=== PATIENT | male | born 1990 | race Caucasian/White ===

== ENCOUNTER 2022-02-07 11:26 | Emergency (ER) | payer OTHER, SELFPAY ==
[2022-02-07] VITALS (7 sets, daily range): BP systolic 135–138; BP diastolic 86–100; PULSE 71–84; RESP 10–22; TEMP 36.9; O2SAT 98–100
--- NOTE | 2022-02-07 11:39 | NUR.NOTE ---
Nursing Note: Meant to put patient as an ISABELL 3 and accidentally clicked 4. ISABELL changed to 3 per intended.
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
--- NOTE | 2022-02-07 12:07 | DI.RAD_ITS ---
Exam(s) XR SHOULDER RT COMPLETE 2+V EXAM: XR SHOULDER RT COMPLETE 2+V CLINICAL HISTORY: right shoulder pain. TECHNIQUE: 2D digital imaging was performed. COMPARISON: No exams were available for comparison FINDINGS: 3 views There is anterior dislocation of the humeral head relative to the glenoid fossa. No obvious fracture evident. AC joint appears unremarkable. IMPRESSION: Anterior glenohumeral dislocation. No obvious fractures evident. DATA REPOSITORY: RADIATION DOSE DELIVERED:
[2022-02-07] MEDS: Lidocaine 1% Multi-Dose 20 ML VIAL (12:46)
[2022-02-07] MEDS: HYDROmorphone 2 MG/ML SYR IVP (13:05)
[2022-02-07] MEDS: Ketorolac 15 MG/ML VIAL IVP (13:07)
[2022-02-07] MEDS: Propofol 200 MG/20 ML VIAL 100 MG IVP (13:30)
--- NOTE | 2022-02-07 14:05 | DI.RAD_ITS ---
Exam(s) XR SHOULDER RT COMP POST REDUC EXAM: XR SHOULDER RT COMP POST REDUC CLINICAL HISTORY: post reduction. TECHNIQUE: 2D digital imaging was performed. COMPARISON: CR XR SHOULDER RT COMPLETE 2+V from 02/07/2022 FINDINGS: Four views: There is successful reduction. There is no evidence of obvious fracture. However, on the frontal vi ew there is a very subtle line in around the greater tuberosity region is possibly just a nutrient ar rob canal but cannot exclude a very subtle nondisplaced fracture at the base of the greater tuberosi ty. AC joint unremarkable. IMPRESSION: Subtle greater tuberosity finding as described above. DATA REPOSITORY: RADIATION DOSE DELIVERED:
--- NOTE | 2022-02-07 18:40 | NUR.NOTE ---
Nursing Note: REFFERAL TO ORTHO
== END 2022-02-07 14:29 | disposition home or self-care (01) ==
PROVIDERS: Emergency Provider Emergency Medicine
DX: S43.004A Unspecified dislocation of right shoulder joint, initial encounter (principal); Y04.2XXA Assault by strike against or bumped into by another person, initial encounter
CPT/HCPCS: 23650; 73030; 96374; 96375; 99285; 99284; J1170; J1885; J2704; J3490

== ENCOUNTER 2023-04-03 08:17 | Emergency (ER) | payer OTHER, SELFPAY ==
[2023-04-03 08:24] VITALS: BP 150/83; PULSE 83; RESP 15; TEMP 36.8; O2SAT 98
--- NOTE | 2023-04-03 08:33 | W.ED.GENAD ---
Discharge Plan Disposition Patient Disposition: [facility] Discharge Details Clinical Impression: Abscess of left knee Primary Care Provider: Daja,Local ED Provider: Chris Villagomez Home Meds and New Rx's Prescriptions: New doxycycline monohydrate 100 mg capsule 100 mg PO BID 14 Days Qty: 28 0RF Continued methylphenidate HCl [Ritalin LA] 40 mg capsule,ER biphasic 50-50 40 mg PO DAILY acetaminophen [8 Hour Pain Reliever] 650 mg tablet extended release 650 mg PO Q12H PRN methadone 5 mg/5 mL syringe 120 mg PO DAILY meloxicam 7.5 mg tablet,disintegrating 7.5 mg PO BID Dandruff Shampoo (selenium) 1 % shampoo 1 applic topical DAILY Rx Instructions: massage into affected area; leave on for 10 mins ; rinse off thoroughly senna 8.6 mg capsule 8.6 mg PO BID tamsulosin [Flomax] 0.4 mg capsule 0.8 mg PO DAILY clonidine HCl 0.1 mg Tablet 0.2 mg PO TID PRN Discontinued cephalexin 500 mg capsule 500 mg PO BID sulfamethoxazole-trimethoprim [Bactrim DS] 800-160 mg tablet 2 tab PO BID Patient Comments: Started 03/28/23 Discharge Instructions Instructions: Abscess (ED) Additional Instructions: You were seen in the emergency department for the superficial infection of your left knee from a prior IV injection site, this is likely MRSA with the quality of the pus coming out of the wound. Please continue hot compresses with a hot soapy washcloth 3 times per day as we discussed, I am having you stop your Keflex and Bactrim and switching you to doxycycline please take this twice per day for 14 days. There was a wound culture taken at today's visit you may call the ER for results of this and 1 to 2 days to confirm susceptibility of the pathogen to our antibiotic choice. If failure to resolve by day 7 of the 14-day course of antibiotics please try to arrange a follow-up appointment with a general surgery office practice for a significant debridement and washout. Please return to the emergency department for pain with passive range of motion of the knee, increasing redness of fever with lymphadenitis spreading out from the area. Discharge Data Discharge Date/Time-TO BE ENTERED AT DEPARTURE: 04/03/23 10:21 Medical Decision Making This dictation utilizes [id number] dictation software and may contain unedited grammatical errors. 32 y/o M presents to ED today with a chief complaint of recurring L knee infection / abscess from a prior IVDU injection site, currently has centrally pitted ulceration with drainage consistent with abscess- on multiple ABX with shaheed RN. Patient denies active IVDU, is incarcerated. Has been getting PO bactrim for days, recently added IM ceftriaxone x3 days with transition to PO Keflex without relief, denies fevers, denies nausea, no lymphadenitis Patients' medical history: IVDU. Family and social history: IVDU history, incarceration. Pertinent exam findings / vital signs include L LE: Mild erythema surrounding a pitted central abscess superficially on the left knee draining green purulent material, 3 cm across erythema, more mild erythema spreading down the calf, no pain with passive range of motion, no joint line tenderness, nontoxic vitals. Differential / pathologies of concern include Cellulitis, Abscess, Septic Arthritis. Diagnostic studies of: -CBC, CMP, Lactate, Blood Cx's, Wound Cx. -no leukocytosis, lactate negative- do not suspect sepsis Interventions of: -changed ABX to doxycycline, recommed they phone for wound culture results. ED Course/Assessment/Plan: 32-year-old male was seen for a recurrent left knee cellulitis with abscess that is actively draining purulent material, he has been on multiple antibiotics with Bactrim and Keflex, this has not improved his infection and I am switching him to doxycycline, he had no signs of septic arthritis on exam, I recommend hot compresses with clean soapy washcloth 3 times per day, if he does not respond to this within 7 to 10 days I recommended that they follow-up with getting him a general surgery appointment for outpatient debridement/drainage/washout for his chronic wound. Findings not consistent with septic arthritis, sepsis. Disposition of Abscess of Left Knee. Patient verbalized understanding of the plan and return to ED criteria and engaged in shared decision making. Medical Records Medical records reviewed: Yes I reviewed the patient's medical records. Lab Data Lab results reviewed: Yes I reviewed the patient's lab results. Labs: 04/03/23 09:30 Knee - Left Wound Culture - Pending 04/03/23 09:30 Knee - Left Gram Stain - Final 04/03/23 09:30 Blood Blood Culture - Pending 04/03/23 09:30 Blood Blood Culture - Pending Laboratory Tests Range/Units 04/03/23 09:38 WBC (4.4-10.8) 10^3/uL 6.56 RBC (4.36-5.78) 10^6/uL 3.36 L Hgb (13.5-17.5) g/dL 10.1 L Hct (40.0-50.0) % 29.8 L MCV (80-95) fL 89 MCH (27.0-33.0) pg 30.1 MCHC (32.0-36.0) % 33.9 RDW (11.8-14.1) % 12.4 Plt Count (130-400) 10^3/uL 185 MPV (8.0-11.0) fL Immature Gran % 0.9 Neutrophils % 73.7 Lymphocytes % 18.0 Monocytes % 5.5 Eosinophils % 1.4 Basophils % 0.5 Nucleated RBC % (0.0-0.3) % 0.0 Absolute Neutrophils (1.2-6.7) 10^3/uL 4.84 Absolute Lymphocytes (1.2-3.4) 10^3/uL 1.18 L Absolute Monocytes (0.1-0.8) 10^3/uL 0.36 Absolute Eosinophils (0.0-0.7) 10^3/uL 0.09 Absolute Basophils (0.0-0.2) 10^3/uL 0.03 RBC Morphology See Below Hypochromasia 1+ VBG Lactate (0.6-1.4) mmol/L 1.3 Sodium (136-145) mmol/L 138 Potassium (3.5-5.1) mmol/L 3.4 L Chloride (98-107) mmol/L 100 Carbon Dioxide (21.0-32.0) mmol/L 27.5 Anion Gap (3-11) mmol/L 10.5 BUN (7-18) mg/dL 20 H Creatinine (0.70-1.30) mg/dL 1.2 Est GFR (CKD-EPI 2020) (mL/min/1.73m2) 82.40 Glucose (74-106) mg/dL 103 Calcium (8.5-10.1) mg/dL 8.9 Total Bilirubin (0.2-1.0) mg/dL 0.2 AST (15-37) U/L 17 ALT (16-63) U/L 22 Alkaline Phosphatase (46-116) U/L 100 Total Protein (6.4-8.2) g/dL 7.3 Albumin (3.4-5.0) g/dL 2.9 L HPI General Date/Time Provider Initiated Documentation: 04/03/23 08:33. HPI Narrative: 32 year-old male presents to ED today by PD custody with a chief complaint of ongoing L knee infection at a prior Xylazine injection site, with drainage of pus with onset of draining for the last 7 days. Quality described as warm to touch, spreading redness, draining purulent material, no radiation to inability to ambulate, fever, red streaking up leg, nausea. Severity is described as 7-8/10. Palliating factors include patient has been on Bactrim without response, and now had 3 days of IM Ceftriaxone followed by PO Keflex. Provoking factors include prior IVDU site. Patient not anticoagulated. Related Data Home Medications Medication Instructions Recorded Confirmed clonidine HCl 0.1 mg tablet 0.2 mg PO TID PRN 02/07/22 04/03/23 acetaminophen 650 mg 650 mg PO Q12H PRN 04/03/23 04/03/23 tablet,extended release (8 Hour Pain Reliever) doxycycline monohydrate 100 mg 100 mg PO BID cellulitis 14 days 04/03/23 capsule #28 caps meloxicam 7.5 mg disintegrating 7.5 mg PO BID 04/03/23 04/03/23 tablet methadone 5 mg/5 mL oral syringe 120 mg PO DAILY 04/03/23 04/03/23 (FOR ORAL USE ONLY) methylphenidate HCl 40 mg biphasic 40 mg PO DAILY 04/03/23 04/03/23 50-50 capsule,extended release (Ritalin LA) selenium sulfide 1 % shampoo 1 applic topical DAILY 04/03/23 04/03/23 (Dandruff Shampoo (selenium sulfide)) sennosides 8.6 mg capsule (senna) 8.6 mg PO BID 04/03/23 04/03/23 tamsulosin 0.4 mg capsule (Flomax) 0.8 mg PO DAILY 04/03/23 04/03/23 Previous Rx's Medication Instructions Recorded doxycycline monohydrate 100 mg 100 mg PO BID cellulitis 14 days 04/03/23 capsule #28 caps Allergies Allergy/AdvReac Type Severity Reaction Status Date / Time No Known Allergies Allergy Unverified 04/03/23 08:29 General Stated Complaint: Cellulitis ISABELL: 3 Review of Systems All systems reviewed & are unremarkable except as noted in HPI and below PFSH All Active Problems (Updated 04/03/23 @ 09:54 by RHONDA Tello) Abscess of left knee (Acute) Social History Smoking/Tobacco Use Status: Never Smoking risk assessment performed?: Yes Alcohol Intake: never Drug use: Never Substance use type: does not use Details: on methadone Housing: other Exam Narrative Exam Narrative: GENERAL APPEARANCE: Well-nourished, non-toxic, awake and alert, atraumatic, no acute distress. SKIN: Warm, pink, dry, intact, without rashes/lesions/ulcerations. L LE: Mild erythema surrounding a pitted central abscess superficially on the left knee draining green purulent material, 3 cm across erythema, more mild erythema spreading down the calf, no pain with passive range of motion, no joint line tenderness HEAD: Normocephalic, atraumatic, normal hair distribution for gender/age. EYES: Pupils PERRLA, EOMs intact without nystagmus, normal conjunctiva, no exudates on lids/lashes. ENT: Nares patent, no circumoral cyanosis, no facial swelling NECK: Supple, trachea midline, painless cervical ROM. LUNGS/CHEST: Non-labored respirations, normal A/P diameter, symmetrical expansion, no chest wall deformity HEART (CV/PV): No peripheral edema, no JVD. ABDOMEN: Soft, non-distended, no guarding. MSK: Normal ROM, no swelling/deformity to bilateral UEs or LEs, moving all extremities without weakness, no cyanosis, spine midline without tenderness, normal curvature. NEURO: Mental Status AAOx4 - alert to person, place, time, events No facial droop, no forehead involvement. Motor: No focal weakness - strength 5/5 in bilateral UEs and LEs, proximal and distal, symmetric. Sensory: sensation intact to light touch globally. Gait normal: patient ambulated without ataxia into ED room. PSYCH: euthymic, cooperative, pleasant, appropriate speech Course Vital Signs Vital signs: Vital Signs Temperature 36.8 C 04/03/23 08:24 Pulse 83 04/03/23 08:24 Respiratory Rate 15 04/03/23 08:24 Blood Pressure 150/83 H 04/03/23 08:24 Pulse Oximetry 98 04/03/23 08:24 Temperature 36.8 C 04/03/23 08:24 Temperature Source Temporal Artery Scan 04/03/23 08:24 Pulse 83 04/03/23 08:24 Respiratory Rate 15 04/03/23 08:24 Respiratory Effort Normal 04/03/23 08:28 Blood Pressure 150/83 H 04/03/23 08:24 Blood Pressure Position Sitting 04/03/23 08:24 Pulse Oximetry 98 04/03/23 08:24 Oxygen Delivery Method Room Air 04/03/23 08:24 Oxygen Flow Rate 0 04/03/23 08:24 Pain Level 4 04/03/23 08:24
[2023-04-03 08:34] VITALS: BP 150/83; PULSE 83; RESP 15; TEMP 36.8; O2SAT 98
[2023-04-03 09:43] LABS: Lactate 1.3 mmol/L (0.6-1.4)
[2023-04-03 09:47] LABS: Abs Immature Grans 0.06 10^3/uL (0.0-0.06); Absolute Basophil Count 0.03 10^3/uL (0.0-0.2); Absolute Eosinophil Count 0.09 10^3/uL (0.0-0.7); Absolute Lymphocyte Count 1.18 10^3/uL (1.2-3.4); Absolute Monocyte Count 0.36 10^3/uL (0.1-0.8); Absolute Neutrophil Count 4.84 10^3/uL (1.2-6.7); Basophils % 0.5; Eosinophils % 1.4; HCT 29.8 % (40.0-50.0); HGB 10.1 g/dL (13.5-17.5); Immature Grans % 0.9; MCH 30.1 pg (27.0-33.0); MCHC 33.9 % (32.0-36.0); MCV 89 fL (80-95); Monocytes % 5.5; Neutrophils % 73.7; RBC 3.36 10^6/uL (4.36-5.78); RDW 12.4 % (11.8-14.1); RDW-SD 40.1 fL; WBC 6.56 10^3/uL (4.4-10.8)
[2023-04-03 09:59] LABS: Diff Comment PLT Morph Reviewed; Hypochromasia 1+; Platelet Count 185 10^3/uL (130-400)
[2023-04-03 10:01] LABS: ALT 22 U/L (16-63); AST 17 U/L (15-37); Albumin 2.9 g/dL (3.4-5.0); Alkaline Phosphatase 100 U/L (46-116); Anion Gap 10.5 mmol/L (3-11); BUN 20 mg/dL (7-18); Bilirubin, Total 0.2 mg/dL (0.2-1.0); CO2 27.5 mmol/L (21.0-32.0); CREATININE 1.2 mg/dL (0.70-1.30); Calcium 8.9 mg/dL (8.5-10.1); Chloride 100 mmol/L (98-107); Glucose 103 mg/dL (74-106); Potassium 3.4 mmol/L (3.5-5.1); Sodium 138 mmol/L (136-145); Total Protein 7.3 g/dL (6.4-8.2)
== END 2023-04-03 10:21 ==
PROVIDERS: Emergency Provider Physician Assistant
DX: L02.416 Cutaneous abscess of left lower limb (principal); B95.62 Methicillin resistant Staphylococcus aureus infection as the cause of diseases classified elsewhere
CPT/HCPCS: 36410; 80053; 87040; 87077; 99285; 83605; 85025; 87070; 87186; 87205; 99283